=== PATIENT | female | born 1985 | race Caucasian/White ===

== ENCOUNTER 2016-05-01 12:55 | Emergency (ER) | payer OTHER ==
[~2016-05-01 12:55] MED LIST: /ESOM40CA OR; /FENT75PA TD; /LABE20TA OR; /ONDA4TA; /PROM25SU RE; ALLE25CA PO; AMBI10TA OR; AMIT10TA2; AMIT25TA2; CAND8TA OR; CEPH500C; CIPRODEX AD; CLIN150C; COLA100C2; DEPA500T2; FLUO10TA2 OR; HEPARIN SQ; HUMALOG INSULIN PUMP; HUMALOG SC; IBUP800T; IMIT6INJ; KETO-28 IV; LISI10TA4; LOPR50TA; LOPRESSOR; LORTAB PO; Lortab; MAGN250T; MAGN500T2; MAGN500T2 OR; METOPROLOL TARTRATE; MOMETASONE; MOTRIN; MULTIVIT PO; NORCO PO; NOVOLOG100 MG/ML SC; PHEN 25 IV; PRENATAL WITH IRON PO; PRIN5TAB; RELPAX; SALINE LOCK FLUSH IV; SIMV20TA2; SIMV5TAB2; TOPI50TA; TOPI50TA OR; TOPIRAMATE; TREXIMET; VICO5TAB; VICO5TAB OR; XANA0.5T OR; ZANT150T OR; ZETI10TA; ZETIA; ZOCO10TA; ZOFR8TAB IV; ZOFRAN; ZOLO100T; ZOLO50TA OR; [UNRECOGNIZED DRUG - CODE] PO; [UNRECOGNIZED DRUG - OTHER] PO
[2016-05-01] MEDS ORDERED: ONDANSETRON 4MG/2ML VIAL (J2405) As Ordered ONE ×2 (13:55→15:42)
[2016-05-01] MEDS ORDERED: MORPHINE 4 MG/ML 1ML SYRINGE As Ordered ONE ×2 (13:55→15:42)
[2016-05-01 14:28] LABS: BASO % 0.4 % (0.0-1.0); EOS # 0.4 K/mm3 (0.0-0.50); EOS % 3.3 % (0.0-3.0); LARGE UNSTAINED CELL # 0.1 K/mm3 (0.0-0.4); LYMPH # 1.8 K/mm3 (1.5-4.5); LYMPH % 17.5 % (24.0-44.0); MEAN CORPUSCULAR HEMOGLOBIN 29.4 pg (27.0-33.0); MEAN CORPUSCULAR HGB CONC 35.2 g/dl (32.0-36.5); MEAN CORPUSCULAR VOLUME 83.6 fl (80.0-96.0); MONO # 0.3 K/mm3 (0.0-0.8); MONO % 2.7 % (0.0-5.0); NEUTROPHILS # 7.9 K/mm3 (1.8-7.7); NEUTROPHILS % 75.2 % (36.0-66.0); PLATELET COUNT, AUTOMATED 327 k/mm3 (150-450); RED CELL DISTRIBUTION WIDTH 12.8 % (11.5-14.5); WHITE BLOOD COUNT 10.4 K/mm3 (4.0-10.0)
[2016-05-01 14:52] LABS: ALBUMIN 3.4 GM/DL (3.2-5.2); ALBUMIN/GLOBULIN RATIO 0.94 (1.00-1.93); ALKALINE PHOSPHATASE 85 U/L (45-117); ALT/SGPT 21 U/L (12-78); ANION GAP 12 MEQ/L (8-16); AST/SGOT 20 U/L (15-37); BILIRUBIN,TOTAL 0.4 MG/DL (0.2-1.0); BLOOD UREA NITROGEN 11 MG/DL (7-18); CALCIUM LEVEL 9.3 MG/DL (8.5-10.1); CARBON DIOXIDE LEVEL 21 MEQ/L (21-32); CHLORIDE LEVEL 106 MEQ/L (98-107); CREATININE FOR GFR 0.59 MG/DL (0.55-1.02); GLOMERULAR FILTRATION RATE > 60.0 (>60); GLUCOSE, FASTING 169 MG/DL (70-105); POTASSIUM SERUM 4.4 MEQ/L (3.5-5.1); SODIUM LEVEL 139 MEQ/L (136-145)
[2016-05-01] MEDS ORDERED: PROMETHAZINE INJ 25 MG/ML VIAL (J2550) As Ordered ONE (17:47)
--- NOTE | 2016-05-01 18:33 | EDDOCDS ---
Nurse's Notes [facility] Name: Cassandra Willingham Age: 31 yrs Sex: Female : 1985 Arrival Date: 05/01/2016 Time: 12:55 Bed I3 / M3 Private MD: Jimmy Santiago Diagnosis: Headache-Acute;Nausea and vomiting Presentation: 05/01 13:04 Presenting complaint: Patient states: having severe migraine and flare up of kr3 costochondritis and is so can't use regular meds. symptoms for past week. Adult Sepsis Screening: The patient does not have new or worsening altered mentation. Patient's respiratory rate is less than 22. Systolic blood pressure is greater than 100. Patient has a qSOFA score of 0- Negative Sepsis Screen. Suicide/Homicide risk assessment- the patient denies having any suicidal and/or homicidal ideations and does not present with any other emotional, behavioral or mental health complaints. Status: Patient is not a environmental services attendant or dependent. Transition of care: patient was not received from another setting of care. 13:04 Method Of Arrival: Wheelchair kr3 13:04 Acuity: ANDREA Level 3 kr3 Triage Assessment: 13:10 General: Appears uncomfortable, Behavior is cooperative. Pain: Pain currently is 10 out kr3 of 10 on a pain scale. Pt Declines HIV testing. Neurological: Level of Consciousness is awake, alert, Reports headache. GI: Reports nausea, vomiting. 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 Insulin: Humalog sliding scale Sub-Q 2. Vitamin Oral once daily 3. Phenergan 25 mg Oral tab (Last dose: 05/01/2016 08:30) 4. Zofran Oral (Last dose: 05/01/2016 04:30) 5. Unisom (doxylamine) oral oral as needed (Last dose: 04/30/2016) 6. Vitamin B-6 Unknown Oral as needed (Last dose: 04/30/2016) 7. Tylenol 325 mg Oral tab 2 tabs as needed (Last dose: 05/01/2016 06:00) - PMHx: Migraine Headaches; Diabetes - IDDM: controlled; costrochondritis; - PSHx: Cesearean Section; Tonsillectomy; Appendectomy; Myringotomy; - Social history: Smoking status: Patient states was never smoker of tobacco. No barriers to communication noted, The patient speaks fluent Cameroonian, Speaks appropriately for age. - Family history: Not pertinent. - : The pt / caregiver states he / she is not on anticoagulants. Home medication list is obtained from the patient, family members. - Exposure Risk Screening:: None identified. Screenin:20 Screening information is obtained from the patient. Primary language is Cameroonian. Fall jam1 risk: No risks identified. Assistance ADL's: requires no assistance with activities of daily living. Abuse/DV Screen: The patient / caregiver reports he/she is: not in a situation that causes fear, pain or injury. Nutritional screening: No deficits noted. Exposure Risk Screening: None identified. Advance Directives: Currently, there is no health care proxy. There is no active DNR order. There is no living will. There is no Power of Whirley Operator. Advance directive information has not previously been placed in an [facility] medical record. Further advance directive information is declined. home support is adequate. Assessment: 14:40 General: Appears uncomfortable, Behavior is cooperative. Pain: Location: right frontal jf3 area, right side of the back of head, right temporal area, right side of forehead, right occipital area, right faith, mid-sternal area, right breast and left breast Pain currently is 10 out of 10 on a pain scale. Neurological: Level of Consciousness is awake, alert, Oriented to person, place, time. Cardiovascular: Capillary refill < 3 seconds Heart tones S1 S2 present Chest pain is described as mild, is aggravated by breathing. Respiratory: Airway is patent Respiratory effort is even, unlabored, Respiratory pattern is regular, symmetrical, Breath sounds are clear bilaterally. GI: Abdomen is obese, Bowel sounds present X 4 quads. Abd is soft and non tender X 4 quads. Reports diarrhea, nausea, vomiting. Derm: Skin is normal. 15:47 General: Pt re-medicated IV for continued pain 9/10 and nausea IV bolus infusing well dls site remains patent and clear.. Vital Signs: 12:58 BP 153 / 100; Pulse 135; Resp 18 S; Temp 96.4(O); Pulse Ox 98% on R/A; Weight 101.6 kg gr2 (R); Height 5 ft. 3 in. (160.02 cm) (R); Pain 8/10; 15:36 BP 155 / 74; Pulse 113; Resp 18; Temp 97.2; Pulse Ox 98% ; Pain 9/10; jam1 15:41 BP 122 / 77 RA (man/); jam1 16:17 Pain 8/10; jf3 16:40 BP 133 / 74; Pulse 106; Resp 18; Temp 97.8; Pulse Ox 99% ; Pain 8/10; jam1 18:29 BP 133 / 79; Pulse 106; Resp 18; Temp 98.8; Pulse Ox 97% on R/A; Pain 0/10; dls 12:58 Body Mass Index 39.68 (101.60 kg, 160.02 cm) gr2 Vitals: 12:58 Log In Time: May 01, 2016 at 12:58. gr2 14:53 Strep Screen is obtained and tested: Negative, a GATSNEG culture is ordered in [facility] and sent. ED Course: 12:57 Patient visited by Marie Fox. gr2 12:57 Patient moved to Waiting gr2 12:58 Jimmy Santiago MD is Private Physician. gr2 12:59 Patient visited by Marie Fox. gr2 12:59 Patient moved to Pre RCE gr2 13:04 Patient moved to Triage 1 kr3 13:05 Triage Initiated kr3 13:16 [facility] ef1 13:16 Gilberto Watts MD is Attending Physician. ef1 13:27 Patient visited by Jo-Ann Rich PA-C. ef1 13:38 [facility] Payment Agreement was scanned into [employer] and attached to record. lg 13:42 Patient moved to I3 / M3 kr3 14:09 Urine Culture Sent. jam1 14:09 UA Sent. jam1 14:20 Pt greeted and oriented to ED. Patient advised of names of staff involved in care, jam1 location of call murrell, wait times and NPO status. Patient has correct armband on for positive identification. Placed in gown. Bed in low position. Call light in reach. Side rails up X 1. Adult w/ patient. Door closed. 14:30 Patient visited by Jo-Ann Rich PA-C. ef1 14:40 The patient / caregiver is instructed regarding the plan of care and ED course. jf3 14:40 Inserted saline lock: 20 gauge in left hand inserted by Lupe Nassar RN. No procedures done jf3 that require assistance. 14:42 Patient visited by Juan Kirk RN. jf3 15:24 Patient visited by Jo-Ann Rich PA-C. ef1 15:48 Patient visited by Audrey Fisher RN. dls 16:31 Patient visited by Jo-Ann Rich PA-C. ef1 17:08 Patient visited by Ruth Munguia PCA. jam1 17:32 Patient visited by Jo-Ann Rich PA-C. ef1 17:54 Jimmy Santiago MD is Referral Physician. ef1 17:55 Your Operations Asst is Referral Physician. ef1 18:30 Discontinued IV lock intact, bleeding controlled, pressure dressing applied, No dls redness/swelling at site. Administered Medications: 14:30 Drug: NS 0.9% 1000 ml [sodium chloride 0.9 % injection solution] Route: IV; Rate: jf3 bolus; Site: left hand; 14:31 Drug: Ondansetron 4 mg [ondansetron HCl 2 mg/mL intravenous solution (2 mL)] Route: jf3 IVP; Site: left hand; 15:50 Follow up: Response: No significant change.; No significant change.provider aware jf3 14:34 Drug: morphine 4 mg [morphine 4 mg/mL intravenous cartridge (1 mL)] Route: IVP; Site: jf3 left hand; 15:50 Follow up: Response: No significant change.; provider aware jf3 15:46 Drug: morphine 4 mg [morphine 4 mg/mL intravenous cartridge (1 mL)] Route: IVP; Site: dls left antecubital; 16:17 Follow up: Pain 8/10 Adult; Response: Pain is decreased jf3 15:46 Drug: Ondansetron 4 mg [ondansetron HCl 2 mg/mL intravenous solution (2 mL)] Route: dls IVP; Site: left antecubital; 16:17 Follow up: Response: Nausea is decreased jf3 17:52 Drug: Promethazine 25 mg [promethazine 25 mg/mL injection solution (1 mL)] Route: IVP; dls Site: left antecubital; 18:22 Follow up: Response: Nausea is resolved dls Intake: Order Results: Lab Order: CBC with Diff; SPEC'M 05/01/16 14:24 Test: WHITE BLOOD COUNT; Value: 10.4; Range: 4.0-10.0; Abnormal: Above high normal; Units: K/mm3; Status: F Test: RED BLOOD COUNT; Value: 4.51; Range: 4.00-5.40; Units: M/mm3; Status: F Test: HEMOGLOBIN; Value: 13.2; Range: 12.0-16.0; Units: g/dl; Status: F Test: HEMATOCRIT; Value: 37.7; Range: 36.0-47.0; Units: %; Status: F Test: MEAN CORPUSCULAR VOLUME; Value: 83.6; Range: 80.0-96.0; Units: fl; Status: F Test: MEAN CORPUSCULAR HEMOGLOBIN; Value: 29.4; Range: 27.0-33.0; Units: pg; Status: F Test: MEAN CORPUSCULAR HGB CONC; Value: 35.2; Range: 32.0-36.5; Units: g/dl; Status: F Test: RED CELL DISTRIBUTION WIDTH; Value: 12.8; Range: 11.5-14.5; Units: %; Status: F Test: PLATELET COUNT, AUTOMATED; Value: 327; Range: 150-450; Units: k/mm3; Status: F Test: NEUTROPHILS %; Value: 75.2; Range: 36.0-66.0; Abnormal: Above high normal; Units: %; Status: F Test: LYMPH %; Value: 17.5; Range: 24.0-44.0; Abnormal: Below low normal; Units: %; Status: F Test: MONO %; Value: 2.7; Range: 0.0-5.0; Units: %; Status: F Test: EOS %; Value: 3.3; Range: 0.0-3.0; Abnormal: Above high normal; Units: %; Status: F Test: BASO %; Value: 0.4; Range: 0.0-1.0; Units: %; Status: F Test: LARGE UNSTAINED CELL %; Value: 1.0; Range: 0.0-4.0; Units: %; Status: F Test: NEUTROPHILS #; Value: 7.9; Range: 1.8-7.7; Abnormal: Above high normal; Units: K/mm3; Status: F Test: LYMPH #; Value: 1.8; Range: 1.5-4.5; Units: K/mm3; Status: F Test: MONO #; Value: 0.3; Range: 0.0-0.8; Units: K/mm3; Status: F Test: EOS #; Value: 0.4; Range: 0.0-0.50; Units: K/mm3; Status: F Test: BASO #; Value: 0.0; Range: 0.0-0.2; Units: K/mm3; Status: F Test: LARGE UNSTAINED CELL #; Value: 0.1; Range: 0.0-0.4; Units: K/mm3; Status: F Lab Order: Complete Comphrensive Metabolic; SPEC'M 05/01/16 14:24 Test: GLUCOSE, FASTING; Value: 169; Range: 70-105; Abnormal: Above high normal; Units: MG/DL; Status: F Test: BLOOD UREA NITROGEN; Value: 11; Range: 7-18; Units: MG/DL; Status: F Test: CREATININE FOR GFR; Value: 0.59; Range: 0.55-1.02; Units: MG/DL; Status: F Test: GLOMERULAR FILTRATION RATE; Value: > 60.0; Range: >60; Status: F Test: SODIUM LEVEL; Value: 139; Range: 136-145; Units: MEQ/L; Status: F Test: POTASSIUM SERUM; Value: 4.4; Range: 3.5-5.1; Units: MEQ/L; Status: F Test: CHLORIDE LEVEL; Value: 106; Range: 98-107; Units: MEQ/L; Status: F Test: CARBON DIOXIDE LEVEL; Value: 21; Range: 21-32; Units: MEQ/L; Status: F Test: ANION GAP; Value: 12; Range: 8-16; Units: MEQ/L; Status: F Test: CALCIUM LEVEL; Value: 9.3; Range: 8.5-10.1; Units: MG/DL; Status: F Test: AST/SGOT; Value: 20; Range: 15-37; Units: U/L; Status: F Test: ALT/SGPT; Value: 21; Range: 12-78; Units: U/L; Status: F Test: ALKALINE PHOSPHATASE; Value: 85; Range: 45-117; Units: U/L; Status: F Test: BILIRUBIN,TOTAL; Value: 0.4; Range: 0.2-1.0; Units: MG/DL; Status: F Test: TOTAL PROTEIN; Value: 7.0; Range: 6.4-8.2; Units: GM/DL; Status: F Test: ALBUMIN; Value: 3.4; Range: 3.2-5.2; Units: GM/DL; Status: F Test: ALBUMIN/GLOBULIN RATIO; Value: 0.94; Range: 1.00-1.93; Abnormal: Below low normal; Status: F Test Note: ; Units are mL/min/1.73 m2 Chronic Kidney Disease Staging per NKF: Stage I & II GFR >=60 Normal to Mildly Decreased Stage III GFR 30-59 Moderately Decreased Stage IV GFR 15-29 Severely Decreased Stage V GFR <15 Very Little GFR Left ESRD GFR <15 on UTILIZATION COORDINATOR Lab Order: UA; SPEC'M 05/01/16 14:07 Test: APPEARANCE, URINE; Value: CLEAR; Range: CLEAR; Status: F Test: COLOR, URINE; Value: YELLOW; Range: YELLOW; Status: F Test: PH,URINE; Value: 5.0; Range: 5.0-9.0; Units: UNITS; Status: F Test: SPECIFIC GRAVITY URINE AUTO; Value: 1.027; Range: 1.002-1.035; Status: F Test: PROTEIN, URINE AUTO; Value: NEGATIVE; Range: NEGATIVE; Units: mg/dL; Status: F Test: GLUCOSE, URINE (UA) AUTO; Value: 3+; Range: NEGATIVE; Abnormal: Above high normal; Units: mg/dL; Status: F Test: KETONE, URINE AUTO; Value: 1+; Range: NEGATIVE; Abnormal: Above high normal; Units: mg/dL; Status: F Test: UROBILINOGEN, URINE AUTO; Value: 0.2; Range: 0.0-2.0; Units: mg/dL; Status: F Test: BILIRUBIN, URINE AUTO; Value: NEGATIVE; Range: NEGATIVE; Status: F Test: NITRITE, URINE AUTO; Value: NEGATIVE; Range: NEGATIVE; Status: F Test: LEUKOCYTE ESTERASE, URINE AUTO; Value: NEGATIVE; Range: NEGATIVE; Status: F Test: BLOOD, URINE BLOOD; Value: NEGATIVE; Range: NEGATIVE; Status: F Test: WBC, URINE AUTO; Value: 2; Range: 0-3; Units: /HPF; Status: F Test: RBC, URINE AUTO; Value: 1; Range: 0-3; Units: /HPF; Status: F Test: BACTERIA, URINE AUTO; Value: NEGATIVE; Range: NEGATIVE; Status: F Test: SQUAMOUS EPITHELIAL CELL UR AU; Value: 1; Range: 0-6; Units: /HPF; Status: F Test: MUCUS, URINE; Value: SMALL; Range: NEGATIVE; Status: F Test: HYALINE CAST, URINE AUTO; Value: 0; Range: 0-1; Units: /LPF; Status: F Outcome: 17:54 Discharge ordered by Provider. ef1 18:31 Discharge Assessment: Patient awake, alert and oriented x 3. No cognitive and/or dls functional deficits noted. Patient verbalized understanding of disposition instructions. patient administered narcotics - no. The following High Risk Discharge criteria are identified: None. Discharged to home ambulatory. Condition: stable Condition: improved. Discharge instructions given to patient, Instructed on discharge instructions, follow up and referral plans. Demonstrated understanding of instructions, No special radiology studies were completed. Property sent home with patient. 18:32 Patient left the ED. dls Signatures: Audrey Fisher, RN RN dls Ruth Munguia, SPOTTER SPOTTER jam1 Gely Taylor, Steve Reg lg Erika Mijares,JAN RN pancho3 Jo-Ann Rich, PA-Ruma PA-C ef1 Marie Fox gr2 Juan Kirk,RN RN jf3 MTDD
--- NOTE | 2016-05-01 18:33 | EDDOCDS ---
Physician Documentation [facility] Name: Cassandra Willingham Age: 31 yrs Sex: Female : 1985 Arrival Date: 05/01/2016 Time: 12:55 Bed I3 / M3 Private MD: Jimmy Santiago Disposition: 05/01/16 17:54 Discharged to Home/Self Care. Impression: Headache - Acute, Nausea and vomiting. - Condition is Stable. - Discharge Instructions: General Headache Without Cause, Nausea and Vomiting, [id number]. - Medication Reconciliation, Local Pharmacy Hours form. - Follow up: Jimmy Santiago; When: 1 - 2 days; Reason: Recheck today's complaints, Continuance of care. Follow up: Emergency Department; Reason: Worsening of conditions. Follow up: Your Plodding Machine Operator; When: 1 - 2 days; Reason: Recheck today's complaints, Continuance of care. - Problem is new. - Symptoms have improved. Historical: - Allergies: Reglanagitated; SULFA (SULFONAMIDES) (Hives); Percocet (Rash); Maxaltworse headache; relapaxworse headache; Imitrexworse headache; Cipro PO; DHE; Latex; - Home Meds: 1. Insulin: Humalog sliding scale Sub-Q 2. Vitamin Oral once daily 3. Phenergan 25 mg Oral tab (Last dose: 05/01/2016 08:30) 4. Zofran Oral (Last dose: 05/01/2016 04:30) 5. Unisom (doxylamine) oral oral as needed (Last dose: 04/30/2016) 6. Vitamin B-6 Unknown Oral as needed (Last dose: 04/30/2016) 7. Tylenol 325 mg Oral tab 2 tabs as needed (Last dose: 05/01/2016 06:00) - PMHx: Migraine Headaches; Diabetes - IDDM: controlled; costrochondritis; - PSHx: Cesearean Section; Tonsillectomy; Appendectomy; Myringotomy; - Social history: Smoking status: Patient states was never smoker of tobacco. No barriers to communication noted, The patient speaks fluent Yakut, Speaks appropriately for age. - Family history: Not pertinent. - : The pt / caregiver states he / she is not on anticoagulants. Home medication list is obtained from the patient, family members. - Exposure Risk Screening:: None identified. 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 3 in. (160.02 cm) (R); Pain 8/10; 15:36 BP 155 / 74; Pulse 113; Resp 18; Temp 97.2; Pulse Ox 98% ; Pain 9/10; jam1 15:41 BP 122 / 77 RA (man/); jam1 16:17 Pain 8/10; jf3 16:40 BP 133 / 74; Pulse 106; Resp 18; Temp 97.8; Pulse Ox 99% ; Pain 8/10; jam1 18:29 BP 133 / 79; Pulse 106; Resp 18; Temp 98.8; Pulse Ox 97% on R/A; Pain 0/10; dls 12:58 Body Mass Index 39.68 (101.60 kg, 160.02 cm) gr2 MDM: 13:31 Financial registration complete. lg 13:38 [facility] Payment Agreement was scanned into [employer] and attached to record. lg 13:42 morphine 4 mg IVP once ordered. ef1 13:42 Ondansetron 4 mg IVP once ordered. ef1 13:42 NS 0.9% 1000 ml IV at bolus once ordered. ef1 13:42 Strep Screen, Nursing ordered. ef1 13:43 CBC with Diff Ordered. EDMS 13:43 Complete Comphrensive Metabolic Ordered. EDMS 13:43 UA Ordered. EDMS 13:43 Urine Culture Ordered. EDMS 13:53 IV Saline Lock ordered. jf3 14:53 GATS (NEGATIVE STREP SCREEN) Ordered. EDMS 14:58 CBC with Diff Reviewed. ef1 14:58 Complete Comphrensive Metabolic Reviewed. ef1 14:58 UA Reviewed. ef1 15:32 morphine 4 mg IVP once ordered. ef1 15:32 Ondansetron 4 mg IVP once ordered. ef1 17:32 Promethazine 25 mg IVP once; dilute and administer 30-60 minutes ordered. ef1 Administered Medications: 14:30 Drug: NS 0.9% 1000 ml [sodium chloride 0.9 % injection solution] Route: IV; Rate: jf3 bolus; Site: left hand; 14:31 Drug: Ondansetron 4 mg [ondansetron HCl 2 mg/mL intravenous solution (2 mL)] Route: jf3 IVP; Site: left hand; 15:50 Follow up: Response: No significant change.; No significant change.provider aware jf3 14:34 Drug: morphine 4 mg [morphine 4 mg/mL intravenous cartridge (1 mL)] Route: IVP; Site: jf3 left hand; 15:50 Follow up: Response: No significant change.; provider aware jf3 15:46 Drug: morphine 4 mg [morphine 4 mg/mL intravenous cartridge (1 mL)] Route: IVP; Site: dls left antecubital; 16:17 Follow up: Pain 8/10 Adult; Response: Pain is decreased jf3 15:46 Drug: Ondansetron 4 mg [ondansetron HCl 2 mg/mL intravenous solution (2 mL)] Route: dls IVP; Site: left antecubital; 16:17 Follow up: Response: Nausea is decreased jf3 17:52 Drug: Promethazine 25 mg [promethazine 25 mg/mL injection solution (1 mL)] Route: IVP; dls Site: left antecubital; 18:22 Follow up: Response: Nausea is resolved [facility] Signatures: Dispatcher [employer] EDAudrey Templeton RN RN dls Gley Taylor Reg [facility] Erika Mijares RN RN kr3 Jo-Ann Rich, PA-C PA-C ef1 Juan Kirk RN RN jf3 The chart was reviewed and I authenticate all verbal orders and agree with the evaluation and treatment provided.Attachments: 13:38 [facility]
--- NOTE | 2016-05-03 19:34 | EDDOCDS ---
Physician Documentation [facility] Name: Cassandra Willingham Age: 31 yrs Sex: Female : 1985 Arrival Date: 05/01/2016 Time: 12:55 Bed I3 / M3 Private MD: Jimmy Santiago Disposition: 05/01/16 17:54 Discharged to Home/Self Care. Impression: Headache - Acute, Nausea and vomiting. - Condition is Stable. - Discharge Instructions: General Headache Without Cause, Nausea and Vomiting, [id number]. - Medication Reconciliation, Local Pharmacy Hours form. - Follow up: Jimmy Santiago; When: 1 - 2 days; Reason: Recheck today's complaints, Continuance of care. Follow up: Emergency Department; Reason: Worsening of conditions. Follow up: Your Compotype Operator; When: 1 - 2 days; Reason: Recheck today's complaints, Continuance of care. - Problem is new. - Symptoms have improved. Historical: - Allergies: Reglanagitated; SULFA (SULFONAMIDES) (Hives); Percocet (Rash); Maxaltworse headache; relapaxworse headache; Imitrexworse headache; Cipro PO; DHE; Latex; - Home Meds: 1. Insulin: Humalog sliding scale Sub-Q 2. Vitamin Oral once daily 3. Phenergan 25 mg Oral tab (Last dose: 05/01/2016 08:30) 4. Zofran Oral (Last dose: 05/01/2016 04:30) 5. Unisom (doxylamine) oral oral as needed (Last dose: 04/30/2016) 6. Vitamin B-6 Unknown Oral as needed (Last dose: 04/30/2016) 7. Tylenol 325 mg Oral tab 2 tabs as needed (Last dose: 05/01/2016 06:00) - PMHx: Migraine Headaches; Diabetes - IDDM: controlled; costrochondritis; - PSHx: Cesearean Section; Tonsillectomy; Appendectomy; Myringotomy; - Social history: Smoking status: Patient states was never smoker of tobacco. No barriers to communication noted, The patient speaks fluent Serbian, Speaks appropriately for age. - Family history: Not pertinent. - : The pt / caregiver states he / she is not on anticoagulants. Home medication list is obtained from the patient, family members. - Exposure Risk Screening:: None identified. 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 3 in. (160.02 cm) (R); Pain 8/10; 15:36 BP 155 / 74; Pulse 113; Resp 18; Temp 97.2; Pulse Ox 98% ; Pain 9/10; jam1 15:41 BP 122 / 77 RA (man/); jam1 16:17 Pain 8/10; jf3 16:40 BP 133 / 74; Pulse 106; Resp 18; Temp 97.8; Pulse Ox 99% ; Pain 8/10; jam1 18:29 BP 133 / 79; Pulse 106; Resp 18; Temp 98.8; Pulse Ox 97% on R/A; Pain 0/10; dls 12:58 Body Mass Index 39.68 (101.60 kg, 160.02 cm) gr2 MDM: 13:31 Financial registration complete. lg 13:38 [facility] Payment Agreement was scanned into [employer] and attached to record. lg 13:42 morphine 4 mg IVP once ordered. ef1 13:42 Ondansetron 4 mg IVP once ordered. ef1 13:42 NS 0.9% 1000 ml IV at bolus once ordered. ef1 13:42 Strep Screen, Nursing ordered. ef1 13:43 CBC with Diff Ordered. EDMS 13:43 Complete Comphrensive Metabolic Ordered. EDMS 13:43 UA Ordered. EDMS 13:43 Urine Culture Ordered. EDMS 13:53 IV Saline Lock ordered. jf3 14:53 GATS (NEGATIVE STREP SCREEN) Ordered. EDMS 14:58 CBC with Diff Reviewed. ef1 14:58 Complete Comphrensive Metabolic Reviewed. ef1 14:58 UA Reviewed. ef1 15:32 morphine 4 mg IVP once ordered. ef1 15:32 Ondansetron 4 mg IVP once ordered. ef1 17:32 Promethazine 25 mg IVP once; dilute and administer 30-60 minutes ordered. ef1 05/02 11:43 T-Sheet-- Draft Copy was scanned into [employer] and attached to record. gb Administered Medications: 05/01 14:30 Drug: NS 0.9% 1000 ml [sodium chloride 0.9 % injection solution] Route: IV; Rate: jf3 bolus; Site: left hand; 14:31 Drug: Ondansetron 4 mg [ondansetron HCl 2 mg/mL intravenous solution (2 mL)] Route: jf3 IVP; Site: left hand; 15:50 Follow up: Response: No significant change.; No significant change.provider aware jf3 14:34 Drug: morphine 4 mg [morphine 4 mg/mL intravenous cartridge (1 mL)] Route: IVP; Site: jf3 left hand; 15:50 Follow up: Response: No significant change.; provider aware jf3 15:46 Drug: morphine 4 mg [morphine 4 mg/mL intravenous cartridge (1 mL)] Route: IVP; Site: dls left antecubital; 16:17 Follow up: Pain 8/10 Adult; Response: Pain is decreased jf3 15:46 Drug: Ondansetron 4 mg [ondansetron HCl 2 mg/mL intravenous solution (2 mL)] Route: dls IVP; Site: left antecubital; 16:17 Follow up: Response: Nausea is decreased 3 17:52 Drug: Promethazine 25 mg [promethazine 25 mg/mL injection solution (1 mL)] Route: IVP; dls Site: left antecubital; 18:22 Follow up: Response: Nausea is resolved [facility] Signatures: Dispatcher [employer] Audrey Maldonado, RN RN dls Caterina Berry, Reg Reg gb Gely Taylor, Reg Reg lg Erika Mijares RN RN pancho3 Jo-Ann Rich PADick PADick ef1 Juan Kirk,RN RN jf3 The chart was reviewed and I authenticate all verbal orders and agree with the evaluation and treatment provided.Attachments: 13:38 [facility] Payment Agreement lg 05/02 11:43 T-Sheet-- Draft Copy gb Chart Complete MTDD
--- NOTE | 2016-05-03 19:34 | EDDOCDS ---
Physician Documentation [facility] Name: Cassandra Willingham Age: 31 yrs Sex: Female : 1985 Arrival Date: 05/01/2016 Time: 12:55 Bed I3 / M3 Private MD: Jimmy Santiago Disposition: 05/01/16 17:54 Discharged to Home/Self Care. Impression: Headache - Acute, Nausea and vomiting. - Condition is Stable. - Discharge Instructions: General Headache Without Cause, Nausea and Vomiting, [id number]. - Medication Reconciliation, Local Pharmacy Hours form. - Follow up: Jimmy Santiago; When: 1 - 2 days; Reason: Recheck today's complaints, Continuance of care. Follow up: Emergency Department; Reason: Worsening of conditions. 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 - Problem is new. - Symptoms have improved. Historical: - Allergies: Reglanagitated; SULFA (SULFONAMIDES) (Hives); Percocet (Rash); Maxaltworse headache; relapaxworse headache; Imitrexworse headache; Cipro PO; DHE; Latex; - Home Meds: 1. Insulin: Humalog sliding scale Sub-Q 2. Vitamin Oral once daily 3. Phenergan 25 mg Oral tab (Last dose: 05/01/2016 08:30) 4. Zofran Oral (Last dose: 05/01/2016 04:30) 5. Unisom (doxylamine) oral oral as needed (Last dose: 04/30/2016) 6. Vitamin B-6 Unknown Oral as needed (Last dose: 04/30/2016) 7. Tylenol 325 mg Oral tab 2 tabs as needed (Last dose: 05/01/2016 06:00) - PMHx: Migraine Headaches; Diabetes - IDDM: controlled; costrochondritis; - PSHx: Cesearean Section; Tonsillectomy; Appendectomy; Myringotomy; - Social history: Smoking status: Patient states was never smoker of tobacco. No barriers to communication noted, The patient speaks fluent Burkinan, Speaks appropriately for age. - Family history: Not pertinent. - : The pt / caregiver states he / she is not on anticoagulants. Home medication list is obtained from the patient, family members. - Exposure Risk Screening:: None identified. 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 3 in. (160.02 cm) (R); Pain 8/10; 15:36 BP 155 / 74; Pulse 113; Resp 18; Temp 97.2; Pulse Ox 98% ; Pain 9/10; jam1 15:41 BP 122 / 77 RA (man/); jam1 16:17 Pain 8/10; jf3 16:40 BP 133 / 74; Pulse 106; Resp 18; Temp 97.8; Pulse Ox 99% ; Pain 8/10; jam1 18:29 BP 133 / 79; Pulse 106; Resp 18; Temp 98.8; Pulse Ox 97% on R/A; Pain 0/10; dls 12:58 Body Mass Index 39.68 (101.60 kg, 160.02 cm) gr2 MDM: 13:31 Financial registration complete. lg 13:38 [facility] Payment Agreement was scanned into [employer] and attached to record. lg 13:42 morphine 4 mg IVP once ordered. ef1 13:42 Ondansetron 4 mg IVP once ordered. ef1 13:42 NS 0.9% 1000 ml IV at bolus once ordered. ef1 13:42 Strep Screen, Nursing ordered. ef1 13:43 CBC with Diff Ordered. EDMS 13:43 Complete Comphrensive Metabolic Ordered. EDMS 13:43 UA Ordered. EDMS 13:43 Urine Culture Ordered. EDMS 13:53 IV Saline Lock ordered. jf3 14:53 GATS (NEGATIVE STREP SCREEN) Ordered. EDMS 14:58 CBC with Diff Reviewed. ef1 14:58 Complete Comphrensive Metabolic Reviewed. ef1 14:58 UA Reviewed. ef1 15:32 morphine 4 mg IVP once ordered. ef1 15:32 Ondansetron 4 mg IVP once ordered. ef1 17:32 Promethazine 25 mg IVP once; dilute and administer 30-60 minutes ordered. ef1 05/02 11:43 T-Sheet-- Draft Copy was scanned into [employer] and attached to record. gb Administered Medications: 05/01 14:30 Drug: NS 0.9% 1000 ml [sodium chloride 0.9 % injection solution] Route: IV; Rate: jf3 bolus; Site: left hand; 14:31 Drug: Ondansetron 4 mg [ondansetron HCl 2 mg/mL intravenous solution (2 mL)] Route: jf3 IVP; Site: left hand; 15:50 Follow up: Response: No significant change.; No significant change.provider aware jf3 14:34 Drug: morphine 4 mg [morphine 4 mg/mL intravenous cartridge (1 mL)] Route: IVP; Site: jf3 left hand; 15:50 Follow up: Response: No significant change.; provider aware jf3 15:46 Drug: morphine 4 mg [morphine 4 mg/mL intravenous cartridge (1 mL)] Route: IVP; Site: dls left antecubital; 16:17 Follow up: Pain 8/10 Adult; Response: Pain is decreased jf3 15:46 Drug: Ondansetron 4 mg [ondansetron HCl 2 mg/mL intravenous solution (2 mL)] Route: dls IVP; Site: left antecubital; 16:17 Follow up: Response: Nausea is decreased 3 17:52 Drug: Promethazine 25 mg [promethazine 25 mg/mL injection solution (1 mL)] Route: IVP; dls Site: left antecubital; 18:22 Follow up: Response: Nausea is resolved [facility] Signatures: Dispatcher [employer] Audrey Maldonado, RN RN dls Caterina Berry, Reg Reg gb Gely Taylor, Reg Reg lg Erika Mijares RN RN pancho3 Jo-Ann Rich PADick PADick ef1 Juan Kirk,RN RN jf3 The chart was reviewed and I authenticate all verbal orders and agree with the evaluation and treatment provided.Attachments: 13:38 [facility] Payment Agreement lg 05/02 11:43 T-Sheet-- Draft Copy gb Chart Complete MTDD
--- NOTE | 2016-05-03 19:34 | EDDOCDS ---
Nurse's Notes [facility] Name: Cassandra Willingham Age: 31 yrs Sex: Female : 1985 Arrival Date: 05/01/2016 Time: 12:55 Bed I3 / M3 Private MD: Jimmy Santiago Diagnosis: Headache-Acute;Nausea and vomiting Presentation: 05/01 13:04 Presenting complaint: Patient states: having severe migraine and flare up of kr3 costochondritis and is so can't use regular meds. symptoms for past week. Adult Sepsis Screening: The patient does not have new or worsening altered mentation. Patient's respiratory rate is less than 22. Systolic blood pressure is greater than 100. Patient has a qSOFA score of 0- Negative Sepsis Screen. Suicide/Homicide risk assessment- the patient denies having any suicidal and/or homicidal ideations and does not present with any other emotional, behavioral or mental health complaints. Status: Patient is not a imaging services director or dependent. Transition of care: patient was not received from another setting of care. 13:04 Method Of Arrival: Wheelchair kr3 13:04 Acuity: ANDREA Level 3 kr3 Triage Assessment: 13:10 General: Appears uncomfortable, Behavior is cooperative. Pain: Pain currently is 10 out kr3 of 10 on a pain scale. Pt Declines HIV testing. Neurological: Level of Consciousness is awake, alert, Reports headache. GI: Reports nausea, vomiting. 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 Insulin: Humalog sliding scale Sub-Q 2. Vitamin Oral once daily 3. Phenergan 25 mg Oral tab (Last dose: 05/01/2016 08:30) 4. Zofran Oral (Last dose: 05/01/2016 04:30) 5. Unisom (doxylamine) oral oral as needed (Last dose: 04/30/2016) 6. Vitamin B-6 Unknown Oral as needed (Last dose: 04/30/2016) 7. Tylenol 325 mg Oral tab 2 tabs as needed (Last dose: 05/01/2016 06:00) - PMHx: Migraine Headaches; Diabetes - IDDM: controlled; costrochondritis; - PSHx: Cesearean Section; Tonsillectomy; Appendectomy; Myringotomy; - Social history: Smoking status: Patient states was never smoker of tobacco. No barriers to communication noted, The patient speaks fluent Citizen [place], Speaks appropriately for age. - Family history: Not pertinent. - : The pt / caregiver states he / she is not on anticoagulants. Home medication list is obtained from the patient, family members. - Exposure Risk Screening:: None identified. Screenin:20 Screening information is obtained from the patient. Primary language is Citizen [place]. Fall jam1 risk: No risks identified. Assistance ADL's: requires no assistance with activities of daily living. Abuse/DV Screen: The patient / caregiver reports he/she is: not in a situation that causes fear, pain or injury. Nutritional screening: No deficits noted. Exposure Risk Screening: None identified. Advance Directives: Currently, there is no health care proxy. There is no active DNR order. There is no living will. There is no Power of Critical Care Unit Manager. Advance directive information has not previously been placed in an [facility] medical record. Further advance directive information is declined. home support is adequate. Assessment: 14:40 General: Appears uncomfortable, Behavior is cooperative. Pain: Location: right frontal jf3 area, right side of the back of head, right temporal area, right side of forehead, right occipital area, right lutheran, mid-sternal area, right breast and left breast Pain currently is 10 out of 10 on a pain scale. Neurological: Level of Consciousness is awake, alert, Oriented to person, place, time. Cardiovascular: Capillary refill < 3 seconds Heart tones S1 S2 present Chest pain is described as mild, is aggravated by breathing. Respiratory: Airway is patent Respiratory effort is even, unlabored, Respiratory pattern is regular, symmetrical, Breath sounds are clear bilaterally. GI: Abdomen is obese, Bowel sounds present X 4 quads. Abd is soft and non tender X 4 quads. Reports diarrhea, nausea, vomiting. Derm: Skin is normal. 15:47 General: Pt re-medicated IV for continued pain 9/10 and nausea IV bolus infusing well dls site remains patent and clear.. Vital Signs: 12:58 BP 153 / 100; Pulse 135; Resp 18 S; Temp 96.4(O); Pulse Ox 98% on R/A; Weight 101.6 kg gr2 (R); Height 5 ft. 3 in. (160.02 cm) (R); Pain 8/10; 15:36 BP 155 / 74; Pulse 113; Resp 18; Temp 97.2; Pulse Ox 98% ; Pain 9/10; jam1 15:41 BP 122 / 77 RA (man/); jam1 16:17 Pain 8/10; jf3 16:40 BP 133 / 74; Pulse 106; Resp 18; Temp 97.8; Pulse Ox 99% ; Pain 8/10; jam1 18:29 BP 133 / 79; Pulse 106; Resp 18; Temp 98.8; Pulse Ox 97% on R/A; Pain 0/10; dls 12:58 Body Mass Index 39.68 (101.60 kg, 160.02 cm) gr2 Vitals: 12:58 Log In Time: May 01, 2016 at 12:58. gr2 14:53 Strep Screen is obtained and tested: Negative, a GATSNEG culture is ordered in [facility] and sent. ED Course: 12:57 Patient visited by Marie Fox. gr2 12:57 Patient moved to Waiting gr2 12:58 Jimmy Santiago MD is Private Physician. gr2 12:59 Patient visited by Marie Fox. gr2 12:59 Patient moved to Pre RCE gr2 13:04 Patient moved to Triage 1 kr3 13:05 Triage Initiated kr3 13:16 [facility] ef1 13:16 Gilberto Watts MD is Attending Physician. ef1 13:27 Patient visited by Jo-Ann Rich PA-C. ef1 13:38 [facility] [place] Payment Agreement was scanned into [employer] and attached to record. lg 13:42 Patient moved to I3 / M3 kr3 14:09 Urine Culture Sent. jam1 14:09 UA Sent. jam1 14:20 Pt greeted and oriented to ED. Patient advised of names of staff involved in care, jam1 location of call murrell, wait times and NPO status. Patient has correct armband on for positive identification. Placed in gown. Bed in low position. Call light in reach. Side rails up X 1. Adult w/ patient. Door closed. 14:30 Patient visited by Jo-Ann Rich PA-C. ef1 14:40 The patient / caregiver is instructed regarding the plan of care and ED course. jf3 14:40 Inserted saline lock: 20 gauge in left hand inserted by Lupe Nassar RN. No procedures done jf3 that require assistance. 14:42 Patient visited by Juan Kirk RN. jf3 15:24 Patient visited by Jo-Ann Rich PA-C. ef1 15:48 Patient visited by Audrey Fisher RN. dls 16:31 Patient visited by Jo-Ann Rich PA-C. ef1 17:08 Patient visited by Ruth Munguia PCA. jam1 17:32 Patient visited by Jo-Ann Rich PA-C. ef1 17:54 Jimmy Santiago MD is Referral Physician. ef1 17:55 Your Pallet Rectifier is Referral Physician. ef1 18:30 Discontinued IV lock intact, bleeding controlled, pressure dressing applied, No dls redness/swelling at site. 05/02 11:43 T-Sheet-- Draft Copy was scanned into [employer] and attached to record. gb Administered Medications: 05/01 14:30 Drug: NS 0.9% 1000 ml [sodium chloride 0.9 % injection solution] Route: IV; Rate: jf3 bolus; Site: left hand; 14:31 Drug: Ondansetron 4 mg [ondansetron HCl 2 mg/mL intravenous solution (2 mL)] Route: jf3 IVP; Site: left hand; 15:50 Follow up: Response: No significant change.; No significant change.provider aware jf3 14:34 Drug: morphine 4 mg [morphine 4 mg/mL intravenous cartridge (1 mL)] Route: IVP; Site: jf3 left hand; 15:50 Follow up: Response: No significant change.; provider aware jf3 15:46 Drug: morphine 4 mg [morphine 4 mg/mL intravenous cartridge (1 mL)] Route: IVP; Site: dls left antecubital; 16:17 Follow up: Pain 8/10 Adult; Response: Pain is decreased jf3 15:46 Drug: Ondansetron 4 mg [ondansetron HCl 2 mg/mL intravenous solution (2 mL)] Route: dls IVP; Site: left antecubital; 16:17 Follow up: Response: Nausea is decreased jf3 17:52 Drug: Promethazine 25 mg [promethazine 25 mg/mL injection solution (1 mL)] Route: IVP; dls Site: left antecubital; 18:22 Follow up: Response: Nausea is resolved dls Intake: Order Results: Lab Order: CBC with Diff; SPEC'M 05/01/16 14:24 Test: WHITE BLOOD COUNT; Value: 10.4; Range: 4.0-10.0; Abnormal: Above high normal; Units: K/mm3; Status: F Test: RED BLOOD COUNT; Value: 4.51; Range: 4.00-5.40; Units: M/mm3; Status: F Test: HEMOGLOBIN; Value: 13.2; Range: 12.0-16.0; Units: g/dl; Status: F Test: HEMATOCRIT; Value: 37.7; Range: 36.0-47.0; Units: %; Status: F Test: MEAN CORPUSCULAR VOLUME; Value: 83.6; Range: 80.0-96.0; Units: fl; Status: F Test: MEAN CORPUSCULAR HEMOGLOBIN; Value: 29.4; Range: 27.0-33.0; Units: pg; Status: F Test: MEAN CORPUSCULAR HGB CONC; Value: 35.2; Range: 32.0-36.5; Units: g/dl; Status: F Test: RED CELL DISTRIBUTION WIDTH; Value: 12.8; Range: 11.5-14.5; Units: %; Status: F Test: PLATELET COUNT, AUTOMATED; Value: 327; Range: 150-450; Units: k/mm3; Status: F Test: NEUTROPHILS %; Value: 75.2; Range: 36.0-66.0; Abnormal: Above high normal; Units: %; Status: F Test: LYMPH %; Value: 17.5; Range: 24.0-44.0; Abnormal: Below low normal; Units: %; Status: F Test: MONO %; Value: 2.7; Range: 0.0-5.0; Units: %; Status: F Test: EOS %; Value: 3.3; Range: 0.0-3.0; Abnormal: Above high normal; Units: %; Status: F Test: BASO %; Value: 0.4; Range: 0.0-1.0; Units: %; Status: F Test: LARGE UNSTAINED CELL %; Value: 1.0; Range: 0.0-4.0; Units: %; Status: F Test: NEUTROPHILS #; Value: 7.9; Range: 1.8-7.7; Abnormal: Above high normal; Units: K/mm3; Status: F Test: LYMPH #; Value: 1.8; Range: 1.5-4.5; Units: K/mm3; Status: F Test: MONO #; Value: 0.3; Range: 0.0-0.8; Units: K/mm3; Status: F Test: EOS #; Value: 0.4; Range: 0.0-0.50; Units: K/mm3; Status: F Test: BASO #; Value: 0.0; Range: 0.0-0.2; Units: K/mm3; Status: F Test: LARGE UNSTAINED CELL #; Value: 0.1; Range: 0.0-0.4; Units: K/mm3; Status: F Lab Order: Complete Comphrensive Metabolic; SPEC'M 05/01/16 14:24 Test: GLUCOSE, FASTING; Value: 169; Range: 70-105; Abnormal: Above high normal; Units: MG/DL; Status: F Test: BLOOD UREA NITROGEN; Value: 11; Range: 7-18; Units: MG/DL; Status: F Test: CREATININE FOR GFR; Value: 0.59; Range: 0.55-1.02; Units: MG/DL; Status: F Test: GLOMERULAR FILTRATION RATE; Value: > 60.0; Range: >60; Status: F Test: SODIUM LEVEL; Value: 139; Range: 136-145; Units: MEQ/L; Status: F Test: POTASSIUM SERUM; Value: 4.4; Range: 3.5-5.1; Units: MEQ/L; Status: F Test: CHLORIDE LEVEL; Value: 106; Range: 98-107; Units: MEQ/L; Status: F Test: CARBON DIOXIDE LEVEL; Value: 21; Range: 21-32; Units: MEQ/L; Status: F Test: ANION GAP; Value: 12; Range: 8-16; Units: MEQ/L; Status: F Test: CALCIUM LEVEL; Value: 9.3; Range: 8.5-10.1; Units: MG/DL; Status: F Test: AST/SGOT; Value: 20; Range: 15-37; Units: U/L; Status: F Test: ALT/SGPT; Value: 21; Range: 12-78; Units: U/L; Status: F Test: ALKALINE PHOSPHATASE; Value: 85; Range: 45-117; Units: U/L; Status: F Test: BILIRUBIN,TOTAL; Value: 0.4; Range: 0.2-1.0; Units: MG/DL; Status: F Test: TOTAL PROTEIN; Value: 7.0; Range: 6.4-8.2; Units: GM/DL; Status: F Test: ALBUMIN; Value: 3.4; Range: 3.2-5.2; Units: GM/DL; Status: F Test: ALBUMIN/GLOBULIN RATIO; Value: 0.94; Range: 1.00-1.93; Abnormal: Below low normal; Status: F Test Note: ; Units are mL/min/1.73 m2 Chronic Kidney Disease Staging per NKF: Stage I & II GFR >=60 Normal to Mildly Decreased Stage III GFR 30-59 Moderately Decreased Stage IV GFR 15-29 Severely Decreased Stage V GFR <15 Very Little GFR Left ESRD GFR <15 on ANIMAL STUNNER Lab Order: UA; SPEC'M 05/01/16 14:07 Test: APPEARANCE, URINE; Value: CLEAR; Range: CLEAR; Status: F Test: COLOR, URINE; Value: YELLOW; Range: YELLOW; Status: F Test: PH,URINE; Value: 5.0; Range: 5.0-9.0; Units: UNITS; Status: F Test: SPECIFIC GRAVITY URINE AUTO; Value: 1.027; Range: 1.002-1.035; Status: F Test: PROTEIN, URINE AUTO; Value: NEGATIVE; Range: NEGATIVE; Units: mg/dL; Status: F Test: GLUCOSE, URINE (UA) AUTO; Value: 3+; Range: NEGATIVE; Abnormal: Above high normal; Units: mg/dL; Status: F Test: KETONE, URINE AUTO; Value: 1+; Range: NEGATIVE; Abnormal: Above high normal; Units: mg/dL; Status: F Test: UROBILINOGEN, URINE AUTO; Value: 0.2; Range: 0.0-2.0; Units: mg/dL; Status: F Test: BILIRUBIN, URINE AUTO; Value: NEGATIVE; Range: NEGATIVE; Status: F Test: NITRITE, URINE AUTO; Value: NEGATIVE; Range: NEGATIVE; Status: F Test: LEUKOCYTE ESTERASE, URINE AUTO; Value: NEGATIVE; Range: NEGATIVE; Status: F Test: BLOOD, URINE BLOOD; Value: NEGATIVE; Range: NEGATIVE; Status: F Test: WBC, URINE AUTO; Value: 2; Range: 0-3; Units: /HPF; Status: F Test: RBC, URINE AUTO; Value: 1; Range: 0-3; Units: /HPF; Status: F Test: BACTERIA, URINE AUTO; Value: NEGATIVE; Range: NEGATIVE; Status: F Test: SQUAMOUS EPITHELIAL CELL UR AU; Value: 1; Range: 0-6; Units: /HPF; Status: F Test: MUCUS, URINE; Value: SMALL; Range: NEGATIVE; Status: F Test: HYALINE CAST, URINE AUTO; Value: 0; Range: 0-1; Units: /LPF; Status: F Lab Order: Urine Culture; SPEC'M 05/01/16 14:07 Test: URINE CULTURE; Value: URINE CULTURE RESULT SPECIMEN APPEARS CONTAMINATED; Status: F Lab Order: GATS (NEGATIVE STREP SCREEN); SPEC'M 05/01/16 14:51 Test: GATS CULTURE (NEG STREP SCR); Value: GATS RESULT NEGATIVE FOR STREP PYOGENES (GROUP A); Status: F Outcome: 17:54 Discharge ordered by Provider. ef1 18:31 Discharge Assessment: Patient awake, alert and oriented x 3. No cognitive and/or dls functional deficits noted. Patient verbalized understanding of disposition instructions. patient administered narcotics - no. The following High Risk Discharge criteria are identified: None. Discharged to home ambulatory. Condition: stable Condition: improved. Discharge instructions given to patient, Instructed on discharge instructions, follow up and referral plans. Demonstrated understanding of instructions, No special radiology studies were completed. Property sent home with patient. 18:32 Patient left the ED. dls Signatures: Audrey Fisher RN RN dls Ruth Munguia, FLEET ADMINISTRATOR FLEET ADMINISTRATOR jam1 Caterina Berry, Reg Reg gb Gely Taylor, Reg Reg lg Erika Mijares,RN RN kr3 Jo-Ann Rich, PADick PAuJngC ef1 Marie Fox gr2 Juan Kirk,RN RN jf3 Chart Complete MTDD
== END 2016-05-01 18:32 | disposition home or self-care (01) ==
LOC: M ED 12:55
DX: O26.891 Other specified pregnancy related conditions, first trimester (principal); R51 Headache; O21.9 Vomiting of pregnancy, unspecified; O24.011 Pre-existing type 1 diabetes mellitus, in pregnancy, first trimester; O99.89 Other specified diseases and conditions complicating pregnancy, childbirth and the puerperium; M94.0 Chondrocostal junction syndrome [Tietze]; Z79.4 Long term (current) use of insulin; Z79.899 Other long term (current) drug therapy; Z88.1 Allergy status to other antibiotic agents; Z88.2 Allergy status to sulfonamides; Z88.5 Allergy status to narcotic agent; Z88.8 Allergy status to other drugs, medicaments and biological substances; Z91.040 Latex allergy status; Z3A.11 11 weeks gestation of pregnancy
CPT/HCPCS: 80053; 81001; 85025; 87086; 87880; 96374; 96375; 96376; 99284; J2405

== ENCOUNTER → 2022-10-17 | Outpatient (REF) | payer OTHER ==
[~2022-10-17] MED LIST changes: -/ESOM40CA OR; -/FENT75PA TD; -/LABE20TA OR; -/ONDA4TA; +ATAC1TAB PO; +FENT1DIS16 TD; +LABE1TAB11 OR; +NEXI1CAP3 OR; +ONDA-1; +ONDA-227 IV; -ZOFR8TAB IV; -[UNRECOGNIZED DRUG - CODE] PO
== END ==
LOC: M SFHCRHEU 13:12
PROVIDERS: ATTEND Internal Medicine
DX: Z53.9 Procedure and treatment not carried out, unspecified reason (principal)